=== PATIENT | male | born 1970 | race Hispanic/Latino ===

== ENCOUNTER 2018-09-04 16:53 | Emergency (ER) | payer OTHER ==
[2018-09-04 17:00] VITALS: BP 154/92; PULSE 93; RESP 16; TEMP 97.8; O2SAT 98
--- NOTE | 2018-09-04 17:41 | ED PDOC ---
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 He is complaining of right sided rib pain, worse with movement and deep breathing. When asked to rate the pain, he said it is a "20/10." Denies taking meds prior to arrival, head injury, loss of consciousness, and dizziness prior to/ post falling. PMD: none provided Past Medical History Reviewed: Historical Data, Nursing Documentation, Vital Signs Vital Signs: Last Vital Signs Temp 97.8 F 09/04/18 16:59 Pulse 93 H 09/04/18 16:59 Resp 16 09/04/18 16:59 BP 154/92 H 09/04/18 16:59 Pulse Ox 98 09/04/18 16:59 - Medical History Other PMH: Vertigo - Surgical History Surgical History: No Surg Hx - Family History Family History: States: Unknown Family Hx - Social History Current smoker - smoking cessation education provided: No Alcohol: Social Drugs: Denies - Home Medications Home Medications: Ambulatory Orders Medication Instructions Recorded Acetaminophen [Acetaminophen 8 650 mg PO Q8 PRN #21 tablet.er 09/04/18 Hour] RX: Ibuprofen [Motrin Tab] 600 mg PO Q6 PRN #20 tab 09/04/18 RX: traMADol [Ultram] 50 mg PO Q6 PRN #12 tab 09/04/18 - Allergies Allergies/Adverse Reactions: Allergies Allergy/AdvReac Type Severity Reaction Status Date / Time No Known Allergies Allergy Verified 09/04/18 16:58 Review of Systems ROS Statement: Except As Marked, All Systems Reviewed And Found Negative Musculoskeletal: Positive for: Other (right rib pain, worse with movement and deep breathing) Neurological: Negative for: Dizziness, Other (loss of consciousness) Physical Exam - Reviewed Nursing Documentation Reviewed: Yes Vital Signs Reviewed: Yes - Physical Exam Comments: GENERAL APPEARANCE: Patient is awake, alert, oriented x 3, uncomfortable appearing. Odor of alcohol on breath. SKIN: Warm, dry; (-) cyanosis. HEAD: (-) swelling and tenderness, with no palpable bony defect. EYES: (-) conjunctival pallor, (-) scleral icterus, (-) nystagmus. ENMT: Mucous membranes moist. Nose: (-) tenderness. Airway patent: (-) stridor. Full ROM of mandible without pain. NECK: Supple, FROM (-) paracervical tenderness, (-) vertebral tenderness CHEST AND RESPIRATORY: (+) tenderness to right anterior and lateral lower ribs. Lungs: (-) rales, (-) rhonchi, (-) wheezes; breath sounds equal bilaterally. HEART AND CARDIOVASCULAR: (-) irregularity ABDOMEN AND GI: Soft; (-) tenderness. BACK: (+) right flank tenderness (-) midline tenderness EXTREMITIES: (-) deformity, (-) tenderness, (-) edema, (-) ecchymosis, (-) limitation of motion, distal pulses 2+. NEURO AND PSYCH: Mental status as above. Has full memory of episode; poultry husbandman: Pupils equal & reactive . EOMI. (-) facial asymmetry. Tongue and uvula midline. Strength 5/5 in all extremities. No gross sensory deficits. Gait: steady. Speech: clear. - ECG O2 Sat by Pulse Oximetry: 98 (RA) Pulse Ox Interpretation: Normal Medical Decision Making Medical Decision Making: Initial Impression: acute rib and flank pain s/p fall Time: 1739 Initial Plan: --Toradol 30mg IM --Right ribs XR --Re-evaluation 1924 Rib XR: (+) 11th rib fracture (?) 10th rib fractures (-) pneumothorax as read by Bhavya BUCKLEY On re-evaluation, patient reports improvement of symptoms. On exam, patient remains AAOx3, in no acute distress. Vitals stable. Lab/Diagnostic results d/w the patient in great detail. Diagnosis of acute rib/flank pain s/p fall; rib fracture d/w the patient. Based on history, exam and diagnostic results, plan will be for outpatient follow up with PMD/ortho. Patient instructed to follow-up with pmd / referral provided / the clinic in 1- 2 days without fail. Advised to take medication as prescribed. Return to the emergency room at any time for any new or worsening symptoms. Patient states he fully agrees with and understands discharge instructions. States that he agrees with the plan and disposition. Verbalized and repeated discharge instructions an d plan. I have given the patient opportunity to ask any additional questions. Scribe Attestation: Documented by Twila Craig, acting as a scribe for Yuki Latif PA-C. Provider Scribe Attestation: All medical record entries made by the Scribe were at my direction and personally dictated by me. I have reviewed the chart and agree that the record accurately reflects my personal performance of the history, physical exam, medical decision making, and the department course for this patient. I have also personally directed, reviewed, and agree with the discharge instructions and disposition. Disposition - Clinical Impression Clinical Impression: Flank pain, Rib pain on right side, Right rib fracture, Fall - Patient ED Disposition Is Patient to be Admitted: No Counseled Patient/Family Regarding: Studies Performed, Diagnosis, Need For Followup, Rx Given - Disposition Referrals: Bello Bailey MD [Medical Doctor] - [facility] [Outside] Disposition: Routine/Home Disposition Time: 19:25 Condition: STABLE Additional Instructions: The emergency medical care you received today was directed at your acute symptoms. If you were prescribed any medication, please fill it and take as directed. It may take several days for your symptoms to resolve. Return to the Emergency Department if your symptoms worsen, do not improve, or if you have any other problems. Please contact your doctor in 2 days for re-evaluation and follow up / or call one of the physicians/clinics you have been referred to that are listed on the Patient Visit Information form that is included in your discharge packet. Bring any paperwork you were given at discharge with you along with any medications you are taking to your follow up visit. Our treatment cannot replace ongoing medical care by a primary care provider (PCP) outside of the emergency department. Prescriptions: Acetaminophen [Acetaminophen 8 Hour] 650 mg PO Q8 PRN #21 tablet.er PRN Reason: Pain, Moderate (4-7) RX: Ibuprofen [Motrin Tab] 600 mg PO Q6 PRN #20 tab PRN Reason: Pain, Moderate (4-7) RX: traMADol [Ultram] 50 mg PO Q6 PRN #12 tab PRN Reason: Pain, Severe (8-10) Instructions: Rib Fractures in Adults, Flank Pain (DC) Forms: [facility] ([place]) Print Language: ARABIC - POA Present On Arrival: Falls Or Trauma
--- NOTE | 2018-09-05 09:58 | RAD ---
Date of service: 09/04/2018 PROCEDURE: Radiographs of the Chest and Right Ribs. HISTORY: s/p fall, pain COMPARISON: None available. TECHNIQUE: Frontal radiograph of the chest and multiple oblique radiographs of the right ribs were obtained. FINDINGS: RIGHT RIBS: There is an acute mildly distracted fracture in the lateral aspect of the 11th rib with approximately 4 mm distraction of fracture fragments. LUNGS: The lungs are well inflated and clear. PLEURA: No pneumothorax or pleural fluid. CARDIOVASCULAR: Normal cardiac size. No pulmonary vascular congestion. No aortic atherosclerotic calcification present OTHER FINDINGS: None. IMPRESSION: Acute mildly distracted fracture in the lateral aspect of the skelton threat. No pneumothorax or pleural fluid.
== END 2018-09-04 19:41 | disposition home or self-care (01) ==
LOC: H.ER 16:53 → SUPCPDRO 16:53 → H.ER 19:41
DX: S22.31XA Fracture of one rib, right side, initial encounter for closed fracture (principal); W10.9XXA Fall (on) (from) unspecified stairs and steps, initial encounter; Y99.0 Civilian activity done for income or pay
CPT/HCPCS: 71101; 96372; 99285; J1885